=== PATIENT | female | born 1985 ===

== ENCOUNTER 2017-12-31 08:57 | Day surgery (SDC) | payer OTHER | END 2017-12-31 19:30 | disposition home or self-care (01) | LOC: CIR.AMB 08:57 | DX: N87.9 Dysplasia of cervix uteri, unspecified (principal) ==

== ENCOUNTER 2020-05-13 08:00 | Outpatient (CLI) | payer OTHER | END 2020-05-13 18:00 | disposition home or self-care (01) | LOC: PPH VACUNA 08:00 | DX: Z23 Encounter for immunization (principal) ==

== ENCOUNTER 2020-09-11 13:02 | Outpatient (CLI) | payer OTHER | END 2020-09-11 13:03 | disposition home or self-care (01) | LOC: NUCLEAR 13:02 | PROVIDERS: ATTEND General Practice | DX: M79.604 Pain in right leg (principal); I82.401 Acute embolism and thrombosis of unspecified deep veins of right lower extremity ==

== ENCOUNTER 2025-01-25 09:17 | Outpatient (CLI) | payer OTHER | END 2025-01-25 09:52 | disposition home or self-care (01) | LOC: TOM 09:17 | PROVIDERS: ATTEND Obstetrics & Gynecology Reproductive Endocrinology | DX: E28.8 Other ovarian dysfunction (principal) ==

== ENCOUNTER 2025-03-05 11:00 | Day surgery (SDC) | payer OTHER ==
[2025-02-26 11:18] LABS: BASO % 0.2 % (0.1-1.2); EOS # 0.18 (0.04-0.54); EOS % 3.2 % (0.7-7.0); LYMPH # 1.50 (1.18-3.74); LYMPH % 26.4 % (19.3-53.1); MEAN PLATELET VOLUME 10.40 fl (9.4-12.4); MONO # 0.42 (0.24-0.82); MONO % 7.4 % (4.7-12.5); NEUT # 3.56 (1.56-6.13); NEUT % 62.6 % (34.0-71.1); RED CELL DISTRIBUTION WIDTH 13.2 % (11.6-14.4)
[2025-02-26 11:21] LABS: URINE APPEARANCE Clear; URINE BILIRRUBIN Negative (NEGATIVE); URINE BLOOD Negative; URINE COLOR Yellow; URINE GLUCOSE Negative (NEGATIVE); URINE KETONE Negative (NEGATIVE); URINE LEUKOCYTE Trace; URINE NITRATE Negative; URINE PROTEIN Negative (NEGATIVE); URINE UROBILINOGEN 0.2 E.U./dl
[2025-02-26 11:25] LABS: URINE BACTERIA 3022.5 uL (0.0-1933); URINE EPITHELIAL CELLS 51.6 uL (0.0-38.8); URINE RBC 3.0 uL (0.0-20.8); URINE WBC 3.9 uL (0.0-23.2)
[2025-02-26 11:38] LABS: URINE CAST 0.00 uL (0.0-1.40)
[2025-02-26 11:44] LABS: INR 0.99
[2025-02-26 11:59] LABS: ALT/SGPT 22.0 U/L (12-78); AST/SGOT 13.0 U/L (15-37); BILIRUBIN TOTAL 0.38 mg/dL (0.3-1.2); BUN CREA RATIO 15.0 (7.0-25.0); CREATININE SERUM 0.78 mg/dL (0.55-1.02); GFR 82.65; GLOBULINA 2.9 G/DL (2.4-3.5); GLUCOSE FASTING 98.0 mg/dL (65-100); OSMOLALITY SERUM 281.0 MOSM/KG (275-295)
[2025-03-05] MEDS ORDERED: POVIDONE-IODINE 118 ML BOTT TOP ONE (14:37)
== END 2025-03-05 18:20 | disposition home or self-care (01) ==
LOC: CIR.AMB 11:00
PROVIDERS: ATTEND Obstetrics & Gynecology
DX: N93.8 Other specified abnormal uterine and vaginal bleeding (principal)

== ENCOUNTER 2025-03-15 13:35 | Outpatient (CLI) | payer OTHER | END 2025-03-15 13:38 | disposition home or self-care (01) | LOC: MAMO-SONO 13:35 | PROVIDERS: ATTEND Surgery | DX: N60.11 Diffuse cystic mastopathy of right breast (principal); N60.12 Diffuse cystic mastopathy of left breast ==